=== PATIENT | female | born 1990 | race Hispanic/Latino ===

== ENCOUNTER 2023-09-06 16:13 | Observation (INO) | payer OTHER, MEDICAID ==
[~2023-09-06] VITALS: Ht 154.9 cm; Wt 70.8 kg
[2023-09-06 16:43] LABS: APPEARANCE,URINE CLEAR (CLEAR); BILIRUBIN,URINE NEGATIVE (NEGATIVE); COLOR,URINE COLORLESS (YELLOW); GLUCOSE, URINE (UA) NEGATIVE (NEGATIVE); KETONES,URINE NEGATIVE (NEGATIVE); LEUKOCYTE ESTERASE ,URINE NEGATIVE Leu/uL (NEGATIVE); NITRATE,URINE NEGATIVE (NEGATIVE); OCCULT BLOOD,URINE NEGATIVE (NEGATIVE); PH,URINE 5.5 (5.0-8.0); PROTEIN,URINE NEGATIVE (NEGATIVE); UROBILINOGEN,URINE 0.2 mg/dL (0.2-1.0)
[2023-09-06 16:53] LABS: ADD UA MICROSCOPIC YES
[2023-09-06 16:55] LABS: BACTERIA,URINE RARE /HPF (None Seen); MUCUS,URINE RARE LPF (None Seen); RBC,URINE 0-1 /HPF (0-1); SQUAMOUS EPITHELIAL CELL,UR RARE /HPF (0-2); WBC,URINE 0-1 /HPF (0-1)
[2023-09-06] MEDS: LACTATED RINGERS 1000ML 1,000 ML IV SCH (17:33)
[2023-09-06] MEDS ORDERED: CELESTONE SOLUSPAN 6 MG/ML 5ML VIAL IM SCH (20:30)
[2023-09-06] MEDS ORDERED: MAGNESIUM SULFATE 40GM/1000ML 1,000 ML IV PRN (20:30)
[2023-09-06] MEDS ORDERED: CALCIUM GLUC 1GM/10ML VIAL IV PRN (20:30)
[2023-09-06] MEDS ORDERED: MAGNESIUM 4GM PREMIX 100ML 100 ML IV SCH (20:30)
[2023-09-07] MEDS: LACTATED RINGERS 1000ML 1,000 ML IV SCH (06:00)
== END 2023-09-07 09:55 | disposition home or self-care (01) ==
LOC: LDH 16:13
PROVIDERS: ADMIT Obstetrics & Gynecology; ATTEND Obstetrics & Gynecology
DX: O42.913 Preterm premature rupture of membranes, unspecified as to length of time between rupture and onset of labor, third trimester (principal); O62.9 Abnormality of forces of labor, unspecified; Z3A.31 31 weeks gestation of pregnancy
CPT/HCPCS: 96372 ×2; 96361 ×2; 96365; 96366 ×3; 81001; 59025; G0378 ×19; J7120 ×4; J0702; J3475 ×2; G0379; A4314; 96360

== ENCOUNTER 2023-09-07 19:31 | Observation (INO) | payer OTHER, MEDICAID ==
[2023-09-07] MEDS ORDERED: CELESTONE SOLUSPAN 6 MG/ML 5ML VIAL IM ONE (20:30)
== END 2023-09-07 20:25 | disposition home or self-care (01) ==
LOC: EDH 19:31 → LDH 19:45
PROVIDERS: ADMIT Obstetrics & Gynecology; ATTEND Obstetrics & Gynecology
DX: Z34.93 Encounter for supervision of normal pregnancy, unspecified, third trimester (principal); Z3A.31 31 weeks gestation of pregnancy
CPT/HCPCS: 96372; G0379; G0378

== ENCOUNTER 2023-12-05 06:54 | Day surgery (SDC) | payer OTHER, MEDICAID ==
[2023-12-03 11:20] LABS: BASOPHILS # (AUTO) 0.03 K/uL (0.00-0.20); BASOPHILS % (AUTO) 0.5 % (0.0-5.0); EOSINOPHILS # (AUTO) 0.12 K/uL (0.00-0.70); HEMATOCRIT 35.8 % (36-48); IMMATURE GRANULOCYTE ABSOLUTE 0.02 K/uL (0-1); LYMPHOCYTES # (AUTO) 1.9 K/uL (1.0-4.8); LYMPHOCYTES % (AUTO) 31.4 % (21.0-51.0); MEAN CORPUSCULAR HEMOGLOBIN 26.9 pg (27.0-33.0); MEAN CORPUSCULAR HGB CONC 32.1 g/dL (32.0-36.0); MEAN CORPUSCULAR VOLUME 83.8 fL (79-99); MONOCYTES # (AUTO) 0.5 K/uL (0.1-1.0); MONOCYTES % (AUTO) 7.6 % (3.0-13.0); NEUTROPHILS # (AUTO) 3.4 K/uL (1.8-7.7); NEUTROPHILS % (AUTO) 58.2 % (40.0-77.0); PLATELET COUNT (AUTO) 279 K/uL (130-400); RED BLOOD CELL COUNT(AUTO) 4.27 MIL/uL (4.00-5.50); RED CELL DISTRIBUTION WIDTH 18.9 % (11.0-15.5); WHITE BLOOD COUNT (AUTO) 5.9 K/uL (4.8-10.8)
[2023-12-03 11:40] VITALS: BP 126/70; PULSE 77; RESP 17
[~2023-12-05] VITALS: Ht 154.9 cm; Wt 69.0 kg
[2023-12-05] VITALS (17 sets, daily range): BP systolic 113–129; BP diastolic 68–83; PULSE 71–87; RESP 12–22
[~2023-12-05 06:54] MED LIST: VALA500T42 PO
[2023-12-05] MEDS ORDERED: MIDAZOLAM HCL 1 MG/ML 2ML VIAL ONE (08:03)
[2023-12-05] MEDS ORDERED: PROPOFOL 10 MG/ML 20ML VIAL IV ONE (08:04)
[2023-12-05] MEDS ORDERED: ONDANSETRON 4MG INJ ONE (08:04)
[2023-12-05] MEDS ORDERED: SUCCINYLCHOLINE CHLORIDE 20 MG/ML 10 ML VIAL ONE (08:04)
[2023-12-05] MEDS ORDERED: ROCURONIUM BROMIDE 10MG/1ML 5ML VL ONE (08:04)
[2023-12-05] MEDS ORDERED: FENTANYL CITRATE PF 50 MCG/1 ML 2ML VIAL ONE (08:08)
[2023-12-05] MEDS: CEFAZOLIN SODIUM 2 GM VIAL ONE (08:26)
[2023-12-05] MEDS: LACTATED RINGERS 1000ML 1,000 ML IV ONE (08:31)
[2023-12-05] MEDS ORDERED: NEOSTIGMINE METHYLSULFATE 1MG/ML IV ONE (08:54)
[2023-12-05] MEDS ORDERED: GLYCOPYRROLATE 0.2 MG/ML 5 ML VIAL ONE (08:54)
[2023-12-05] MEDS ORDERED: ALBUTEROL INHALER 90MCG/INH IH ONE (09:11)
[2023-12-05] MEDS: ONDANSETRON 4MG INJ ONE (09:47)
[2023-12-05] MEDS: KETOROLAC 30MG VIAL (30MG/ML) ONE (09:48)
[2023-12-05] MEDS: MEPERIDINE-PF 25 MG/ML SYG ONE (09:50)
[2023-12-05] MEDS ORDERED: IBUP-2088 PO (10:41)
[2023-12-05] MEDS ORDERED: ACET-2079 PO (10:41)
== END 2023-12-05 15:26 | disposition home or self-care (01) ==
LOC: DAH 06:54
PROVIDERS: ATTEND Obstetrics & Gynecology
DX: Z30.2 Encounter for sterilization (principal); N85.2 Hypertrophy of uterus; Z30.09 Encounter for other general counseling and advice on contraception; Z79.1 Long term (current) use of non-steroidal anti-inflammatories (NSAID); Z87.891 Personal history of nicotine dependence; Z72.89 Other problems related to lifestyle
CPT/HCPCS: 84703; 85025; 86850; 86900; 86901; 36415; 58670; A6260; A4663; J7120 ×2; A4215 ×2; J3010; J0330; J3490 ×2; J2250; J2704; J2405 ×2; J1885; J2710; J2175; J0690; C1769; A4351; A4223; A4222; A4221; A4600; G0168